=== PATIENT | male | born 1980 | race Caucasian/White ===

== ENCOUNTER 2016-04-01 13:22 | Emergency (ER) | payer OTHER ==
[~2016-04-01] VITALS: Ht 167.6 cm; Wt 81.5 kg
[~2016-04-01 13:22] MED LIST: HYDR-3498 PO; IBUP-1542 PO; LIDO20SO19 MM
[2016-04-01 13:40] VITALS: Ht 167.6 cm; Wt 81.5 kg
--- NOTE | 2016-04-01 15:03 | ERD ---
ER Documentation Chief Complaint Date/Time DATE: 04/01/16 TIME: 15:00 Chief Complaint LT EAR PRESSURE, HARD TO HEAR, SLIGHT PAIN HPI This patient is a 35-year-old male with no significant medical history presenting to the emergency department for left ear pain which is been ongoing for the past 2 days. Additionally the patient reports he is unable to hear well out of the left ear. He rates his pain a 7 out of 10 on the pain scale and worsening. The patient denies any mastoid tenderness, fever, chills, or other symptoms at this time. There are no other alleviating or exacerbating factors at this time. ROS All systems reviewed and are negative except as per history of present illness. Medications Home Meds Active Scripts Ibuprofen* (Motrin*) 600 Mg Tab, 600 MG PO Q6, #30 TAB Prov:TOO DOMÍNGUEZ PA-C 02/09/16 Lidocaine (Lidocaine Viscous) 100 Ml Soln, 10 ML MM BID, #100 ML Prov:TOO DOMÍNGUEZ PA-C 02/09/16 Hydrocodone Bit-Acetaminophen* ([place]*) 5-325 Mg Tab, 1 TAB PO Q6 Y for PAIN, # 10 TAB Prov:TOO DOMÍNGUEZ PA-C 03/25/15 Ibuprofen* (Motrin*) 600 Mg Tab, 600 MG PO Q6, #20 TAB Prov:TOO DOMÍNGUEZ PA-C 03/25/15 Allergies Allergies: Coded Allergies: No Known Allergy (Unverified , 02/09/16) PMhx/Soc Medical and Surgical Hx: pt denies Medical Hx, pt denies Surgical Hx History of Surgery: No Anesthesia Reaction: No Hx Neurological Disorder: No Hx Respiratory Disorders: No Hx Cardiac Disorders: No Hx Psychiatric Problems: No Hx Miscellaneous Medical Probl: No Hx Alcohol Use: No Hx Substance Use: No Hx Tobacco Use: No FmHx Noncontributory for chief complaint Physical Exam Vitals Vital Signs Date Time Temp Pulse Resp B/P Pulse Ox O2 Delivery O2 Flow Rate FiO2 04/01/16 13:40 98.6 89 17 129/77 98 Physical Exam INITIAL VITAL SIGNS: Reviewed by me. GENERAL: Alert and interactive. No acute distress. HEAD: Head is normocephalic and atraumatic. EYES: EOMI. No scleral icterus. No conjunctival injection. ENT: Moist mucosa. There is cerumen impaction bilaterally with no swelling or erythema of the external auditory canal. There is no tenderness to palpation of the mastoid bilaterally. There is no pain on manipulation of the tragus or external ear bilaterally. NECK: Supple. Full range of motion. RESPIRATORY: Normal respiratory effort. Clear breath sounds bilaterally. No wheezing, rales, or rhonchi. CV: Regular rate and rhythm. Normal S1 S2. No S3 or S4. No murmurs. ABDOMEN: Soft, non-distended, non-tender. No guarding. No rebound. No masses. EXTREMITIES: No deformity. SKIN: Warm and dry. NEUROLOGIC: Alert and oriented x 4. Speech is normal. Moves all extremities equally. No motor or sensory deficits noted. Procedures/MDM MDM: 35-year-old male presents to the emergency department for difficulty hearing out of his left ear as well as pain. On physical examination there is cerumen impaction to the left ear. There is copious amount of cerumen present in the right ear. There are no clinical signs of otitis externa at this time. I have ordered a irrigation of both external auditory canals. The patient tolerated the procedure well. On reexamination the external auditory canals are clear bilaterally. The cerumen has been disimpacted successfully. The patient is stable for discharge at this time. His questions and concerns of been addressed and he understands his diagnosis. Departure Diagnosis: Primary Impression: Left ear pain Additional Impression: Cerumen impaction Condition: Stable Patient Instructions: Cerumen Impaction, Home Care, Ear Wax, Treated Additional Instructions: Follow-up with your primary care physician within 1 week. Return to the emergency department immediately should you have any new or worsening symptoms, uncontrolled fevers, or other unexplained symptoms. Take all medications as directed. TSERING HO PA-C Apr 01, 2016 15:03
== END 2016-04-01 15:51 | disposition home or self-care (01) ==
LOC: FTE 13:22
DX: H92.02 Otalgia, left ear (principal); H61.22 Impacted cerumen, left ear

== ENCOUNTER 2018-08-14 05:36 | Emergency (ER) | payer OTHER ==
[~2018-08-14] VITALS: Ht 167.6 cm; Wt 82.4 kg
[~2018-08-14 05:36] MED LIST changes: +AMOX500C2 PO
[2018-08-14 05:39] VITALS: BP 137/92; PULSE 71; RESP 20; Ht 167.6 cm; Wt 82.4 kg
[2018-08-14] MEDS ORDERED: CARB-155 BOTH EARS (06:42)
[2018-08-14] MEDS ORDERED: CIPR7.5D RIGHT EAR (07:15)
--- NOTE | 2018-08-14 07:32 | ERD ---
ER Documentation Chief Complaint Chief Complaint RIGHT EAR PAIN AND LOSS OF HEARING X 1 DAY HPI This is a 38-year-old male patient presents emergency room with complaint of right ear pain x1 day. States he has had this issue in the past and has needed an ear lavage to clear up impacted cerumen. States he works in [employer] and [employer]. No recent fevers, illness, travel. Daughter is sick with a cough currently. Patient is otherwise well-appearing. No chronic medical conditions. ROS All systems reviewed and are negative except as per history of present illness. Medications Home Meds Active Scripts Ciprofloxacin Hcl/Dexameth (Ciprodex Otic Suspension) 7.5 Ml Drops.susp, 4 DROP RIGHT EAR BID for otitis externa for 7 Days, EA Prov:ABIMAEL SANDERSON NP 08/14/18 Carbamide Peroxide* (Debrox*) 6.5% -15 Ml Drops, 10 DROP BOTH EARS BID for 7 Days, #1 BOTTLE Prov:ABIMAEL SANDERSON NP 08/14/18 Amoxicillin* (Amoxicillin*) 500 Mg Cap, 500 MG PO BID for 7 Days, CAP Prov:SAMANTHA SALDANA PA-C 11/24/17 Ibuprofen* (Motrin*) 600 Mg Tab, 600 MG PO Q6, #30 TAB Prov:TOO DOMÍNGUEZ PA-C 02/09/16 Lidocaine (Lidocaine Viscous) 100 Ml Soln, 10 ML MM BID, #100 ML Prov:TOO DOMÍNGUEZ PA-C 02/09/16 Hydrocodone Bit-Acetaminophen* ([place]*) 5-325 Mg Tab, 1 TAB PO Q6 PRN for PAIN, #10 TAB Prov:TOO DOMÍNGUEZ PA-C 03/25/15 Ibuprofen* (Motrin*) 600 Mg Tab, 600 MG PO Q6, #20 TAB Prov:TOO DOMÍNGUEZ PA-C 03/25/15 Allergies Allergies: Coded Allergies: No Known Allergy (Unverified , 11/24/17) PMhx/Soc Medical and Surgical Hx: pt denies Medical Hx, pt denies Surgical Hx History of Surgery: No Anesthesia Reaction: No Hx Neurological Disorder: No Hx Respiratory Disorders: No Hx Cardiac Disorders: No Hx Psychiatric Problems: No Hx Miscellaneous Medical Probl: No Hx Alcohol Use: No Hx Substance Use: No Hx Tobacco Use: No Smoking Status: Never smoker Physical Exam Vitals Vital Signs Date Temp Pulse Resp B/P (MAP) Pulse Ox O2 O2 Flow FiO2 Time Delivery Rate 08/14/18 97.5 71 20 137/92 100 05:39 (107) Physical Exam Const: No acute distress Head: Atraumatic Eyes: Normal Conjunctiva, PERRL ENT: No nasal discharge, pharynx pink, moist, no petechiae or exudate. BL TM obstructed by dark cerumen. Neck: Full range of motion. No meningismus. No lymphadenopathy Resp: Clear to auscultation bilaterally, no wheezing Cardio: Regular rate and rhythm, no murmurs Abd: Soft, non tender, non distended. Normal bowel sounds Skin: No petechiae or rashes Ext: No cyanosis, or edema Neur: Awake and alert Psych: Normal Mood and Affect Procedures/MDM This is a 38-year-old male patient presents emergency room with complaint of right ear pain x1 day. ED COURSE: The patient was stable throughout ED course. PROCEDURES: Bilateral ear lavage with saline and hydrogen peroxide solution. Right ear: Post lavage reveals exudative discharge in external canal. Left ear: Post lavage reveals TM without injection or bulging, external canal w ithout discharge or erythema MEDICATIONS GIVEN: Patient declined. MDM: Patient's ENT symptoms have stabilized while in the department and are appropriate for outpatient work up. Exam and w/u not consistent w/ deep space infection of the face, throat, or mastoids. No evidence of impending TM rupture, airway compromise, or meningitis. Patient instructed on use antibiotics, antipyretic, and cerumen removal. Instructed to follow-up with primary care provider in 3-5 days for reassessment. Instructed to return to emergency department immediately for worsening or changing of symptoms. DISPOSITION: The patient has been discharge home to follow-up with community physician. Departure Diagnosis: Primary Impression: Otitis externa Otitis externa type: other infective Chronicity: acute Laterality: right Qualified Codes: H60.391 - Other infective otitis externa, right ear Additional Impression: Cerumen impaction Laterality: left Qualified Codes: H61.22 - Impacted cerumen, left ear Condition: Stable Patient Instructions: Cerumen Impaction, Home Care Referrals: COMMUNITY CLINICS YOU HAVE RECEIVED A MEDICAL SCREENING EXAM AND THE RESULTS INDICATE THAT YOU DO NOT HAVE A CONDITION THAT REQUIRES URGENT TREATMENT IN THE EMERGENCY DEPARTMENT. FURTHER EVALUATION AND TREATMENT OF YOUR CONDITION CAN WAIT UNTIL YOU ARE SEEN IN YOUR DOCTORS OFFICE WITHIN THE NEXT 1-2 DAYS. IT IS YOUR RESPONSIBILITY TO MAKE AN APPOINTMENT FOR FOLOW-UP CARE. IF YOU HAVE A PRIMARY DOCTOR --you should call your primary doctor and schedule an appointment IF YOU DO NOT HAVE A PRIMARY DOCTOR YOU CAN CALL OUR PHYSICIAN REFERRAL HOTLINE AT IF YOU CAN NOT AFFORD TO SEE A PHYSICIAN YOU CAN CHOSE FROM THE FOLLOWING [facility] CLINICS [facility] [address] [facility] [address] [facility] [address] [facility] [address] [facility]. [facility] [address] [facility]. [facility]. [address] Additional Instructions: Thank you very much for allowing us to participate in your care. Your health and safety is our top priority at [facility]. Call your primary care doctor TOMORROW for an appointment during the next 2-4 days and bring all the information and medications prescribed. Have prescriptions filled and follow precisely the directions on the label. If the symptoms get worse and your provider is unavailable, return to the Emergency Department immediately. ABIMAEL SANDERSON NP August 14, 2018 07:32
== END 2018-08-14 07:41 | disposition home or self-care (01) ==
LOC: FTE 05:36
DX: H60.391 Other infective otitis externa, right ear (principal); H61.22 Impacted cerumen, left ear
CPT/HCPCS: 69209; Z7502